=== PATIENT | female | born 1945 | race Caucasian/White ===

== ENCOUNTER → 2021-02-16 10:31 | Outpatient (BNVA) | payer MEDICARE, OTHER, SELFPAY | PROVIDERS: PCP Internal Medicine; Visit Provider Hospitalist | DX: J45.40 Moderate persistent asthma, uncomplicated (principal); J30.9 Allergic rhinitis, unspecified; M25.512 Pain in left shoulder; Z14.8 Genetic carrier of other disease | CPT/HCPCS: 99212 ==

== ENCOUNTER → 2022-03-02 09:49 | Outpatient (BNVA) | payer MEDICARE, OTHER, SELFPAY | PROVIDERS: PCP Internal Medicine; Visit Provider Hospitalist | DX: J45.40 Moderate persistent asthma, uncomplicated (principal); J30.9 Allergic rhinitis, unspecified; Z14.8 Genetic carrier of other disease | CPT/HCPCS: 99212 ==

== ENCOUNTER 2023-02-27 10:00 | Outpatient (REF) | payer MEDICARE, OTHER, SELFPAY ==
--- NOTE | 2023-02-27 | PFT_ITS ---
Forced vital capacity 94% and FEV1 95%. FEV1/FVC ratio is 76. [id number] 98% and MVV 120%. Post bronchodilator therapy, there is no significant change. Total lung capacity 95%. Residual volume 71%. Diffusion capacity 72% CONCLUSION: Normal pulmonary function test. There is no evidence of obstructive or restrictive pulmonary disorder. Clinical correlation recommended. MD FRANCISCA Leahy/LINDSEY / [phone]
== END 2023-02-27 10:01 | disposition home or self-care (01) ==
LOC: HO.RESP 10:00
PROVIDERS: Visit Provider Hospitalist
DX: J44.9 Chronic obstructive pulmonary disease, unspecified (principal)
CPT/HCPCS: 94010; 94727; 94729

== ENCOUNTER → 2023-03-26 10:16 | Outpatient (BNVA) | payer MEDICARE, OTHER, SELFPAY | PROVIDERS: PCP Internal Medicine; Visit Provider Hospitalist | DX: J45.40 Moderate persistent asthma, uncomplicated (principal); J30.9 Allergic rhinitis, unspecified; Z14.8 Genetic carrier of other disease | CPT/HCPCS: 99212 ==

== ENCOUNTER 2024-03-26 10:11 | Outpatient (AMB) | payer MEDICARE, OTHER, SELFPAY ==
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
[2024-03-26 10:21] VITALS: PULSE 58; O2SAT 94; BMI 27.5
== END 2024-03-26 10:43 | disposition home or self-care (01) ==
PROVIDERS: PCP Internal Medicine; Visit Provider Hospitalist
DX: J45.40 Moderate persistent asthma, uncomplicated (principal); J30.9 Allergic rhinitis, unspecified; Z14.8 Genetic carrier of other disease
CPT/HCPCS: 99214

== ENCOUNTER → 2024-03-26 10:11 | Outpatient (BNVA) | payer MEDICARE, OTHER, SELFPAY | PROVIDERS: PCP Internal Medicine; Visit Provider Hospitalist | DX: J45.40 Moderate persistent asthma, uncomplicated (principal); J30.9 Allergic rhinitis, unspecified; Z14.8 Genetic carrier of other disease | CPT/HCPCS: 99212 ==

== ENCOUNTER 2025-03-26 10:44 | Outpatient (AMB) | payer MEDICARE, OTHER, SELFPAY ==
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
[2025-03-26 10:47] VITALS: BP 146/80; PULSE 69; O2SAT 98; BMI 26.4
--- OUTSIDE RECORDS SUMMARY | 2025-03-26 12:16 | XMS_ITS | Clinical Summary ---
Author Organization [facility] Address [address] [place] [id number] Care Team Providers Care Scientific Illustrator Name Role Phone Unknown, Primary Care Provider Unavailabl e Social History Tobacco Use Types Packs/Day Years Used Date Smoking Tobacco: Never Assessed Sex and Gender Information Value Date Recorded Sex Assigned at Not on file Gender Identity Not on file Sexual Orientation Not on file Job Start Date Occupation Industry Not on file Not on file Not on file Plan of Treatment Health Maintenance Due Date Last Done Comments Hepatitis C Screening 1945 Depression Screening 1958 Preventative Health Evaluation 1964 Fall Risk Assessment 12/22/2011 Osteoporosis Screening (DEXA Scan) 12/22/2011 DTap / Tdap / Td (1 - Tdap) 10/01/2018 09/30/2018 COVID-19 Vaccine ( season) 2024 06/30/2023, 01/18/2022, 07/11/2021, Additional history exists Influenza Vaccine (Season Ended) 2025 06/30/2023, 07/19/2022, 07/11/2021, Additional history exists Pneumococcal Vaccine Completed 07/27/2017, 07/25/2017, 06/25/2015, Additional history exists Shingrix-Zoster Vaccine Completed 06/02/2019, 02/28 RSV Adult > 60+ Yrs or Completed 07/20/2023 Hepatitis B Vaccines Aged Out No long er eligible based on patient's age to complete this topic RSV Ped < 20 months Aged Out No longe r eligible based on patient's age to complete this topic Care Teams Scientific Illustrator Relationship Specialty Start Date End Date Unknown, PCP - General 08/01/23
== END 2025-03-26 11:12 | disposition home or self-care (01) ==
LOC: HO.HPS 10:45
PROVIDERS: PCP Internal Medicine; Visit Provider Hospitalist
DX: J45.40 Moderate persistent asthma, uncomplicated (principal); J30.9 Allergic rhinitis, unspecified; Z14.8 Genetic carrier of other disease
CPT/HCPCS: 99214

== ENCOUNTER → 2025-03-26 10:44 | Outpatient (BNVA) | payer MEDICARE, OTHER, SELFPAY | PROVIDERS: PCP Internal Medicine; Visit Provider Hospitalist | DX: J45.40 Moderate persistent asthma, uncomplicated (principal); J30.9 Allergic rhinitis, unspecified; Z14.8 Genetic carrier of other disease | CPT/HCPCS: 99212 ==